=== PATIENT | female | born 1965 | race American Indian/Alaskan Native ===

== ENCOUNTER 2017-09-06 11:11 | Emergency (ER) | payer OTHER ==
--- NOTE | 2017-09-06 11:16 | EDM.PDOC ---
ED HPI GENERAL MEDICAL PROBLEM - General Chief Complaint: Head Injury Stated Complaint: FELL AND HIT HEAD LAST NIGHT/HEADACHE, [id number] Time Seen by Provider: 09/06/17 11:16 Source of Information: Reports: Patient, Old Records, RN, RN Notes Reviewed History Limitations: Reports: No Limitations - History of Present Illness INITIAL COMMENTS - FREE TEXT/NARRATIVE: Arrives from home by POV with c/o headache and pain with muscle spasms in the neck and low back. Pt states that she slipped on the ice yesterday and fell back hitting the back of her head and has pain in the neck and low back. Denies LOC, vomiting, leak of bloody or clear fluid from the ears or nose. Admits to nausea. She took a hydrocodone and flexeril but it didn't help the pain. 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: Reports: Other Medication(s) Head Pain Score (Numeric/FACES): 8 Neck Pain Score (Numeric/FACES): 8 Upper Back Pain Score (Numeric/FACES): 8 - Related Data Allergies Allergy/AdvReac Type Severity Reaction Status Date / Time morphine Allergy Hives Verified 09/06/17 11:19 tramadol Allergy Abdominal Verified 09/06/17 11:19 Pain acetaminophen AdvReac Stomach Verified 09/06/17 11:19 [From Tylenol-Codeine #3] Upset codeine phosphate AdvReac Stomach Verified 09/06/17 11:19 [From Tylenol-Codeine #3] Upset ketorolac [From Toradol] AdvReac Stomach Verified 09/06/17 11:19 Upset trazodone AdvReac Stomach Verified 09/06/17 11:19 Upset Home Meds: Home Meds Cyclobenzaprine [Flexeril] 10 mg PO TID PRN 12/13/13 [History] Ibuprofen 800 mg PO ASDIRECTED PRN 12/13/13 [History] Lisinopril [Zestril] 20 mg PO DAILY 12/13/13 [History] Hydrocodone/Acetaminophen [Hydrocodon-Acetaminophen 5-325] 1 each PO ASDIRECTED PRN 02/13/16 [History] atorvaSTATin [Lipitor] 40 mg PO BEDTIME 02/13/16 [History] Nitroglycerin [Nitrostat] 1 tab PO ASDIRECTED 02/23/16 [History] Aspirin [Ecotrin] 81 mg PO DAILY 03/08/16 [History] Cholecalciferol (Vitamin D3) [Vitamin D] 5,000 unit PO DAILY 09/06/17 [History] Diclofenac Sodium [Voltaren] 1 applic TOP ASDIRECTED 09/06/17 [History] Hydrochlorothiazide 12.5 mg PO DAILY 09/06/17 [History] Omeprazole 20 mg PO BID 09/06/17 [History] Ranitidine [Zantac] 150 mg PO DAILY 09/06/17 [History] Past Medical History HEENT History: Reports: None Cardiovascular History: Reports: High Cholesterol, Hypertension Respiratory History: Reports: None Gastrointestinal History: Reports: None Genitourinary History: Reports: None 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 Other Musculoskeletal History: hip pain Neurological History: Reports: None Psychiatric History: Reports: None Endocrine/Metabolic History: Reports: None Hematologic History: Reports: None Immunologic History: Reports: None Oncologic (Cancer) History: Reports: None - Past Surgical History Cardiovascular Surgical History: Reports: Other (See Below) Social & Family History - Family History Family Medical History: Noncontributory - Tobacco Use Smoking Status *Q: Current Every Day Smoker Years of Tobacco use: 2 Packs/Tins Daily: 0.1 Used Tobacco, but Quit: No Second Hand Smoke Exposure: Yes - Caffeine Use Caffeine Use: Reports: Coffee - Alcohol Use Days Per Week of Alcohol Use: 0 - Recreational Drug Use Recreational Drug Use: No - Living Situation & Occupation Living situation: Reports: with Family Occupation: Employed ED ROS GENERAL - Review of Systems Review Of Systems: ROS reveals no pertinent complaints other than HPI. ED EXAM, HEAD INJURY - Physical Exam Exam: See Below Exam Limited By: No Limitations General Appearance: Alert, WD/WN, No Apparent Distress Head: Atraumatic, Normocephalic Nexus Criteria: Posterior, Midline Cervical Tenderness Eyes: Bilateral Eye: EOMI, Normal Inspection, PERRL Ears: Normal External Exam, Normal Canal, Hearing Grossly Normal, Normal TMs. No: Canal Blood, Canal Discharge, TM Blood, TM Fluid Nose: Normal Inspection, Normal Mucousa, No Blood Throat/Mouth: Normal Inspection, Normal Lips, Normal Teeth, Normal Gums, Normal Oropharynx, Normal Voice, No Airway Compromise Neck: Normal Alignment, Limited Range of Motion, Muscle Spasm, Painful Range of Motion, Paraspinous Muscle Tender Respiratory: No Respiratory Distress, Lungs Clear, Normal Breath Sounds, No Accessory Muscle Use, Chest Non-Tender Cardiovascular: Normal Peripheral Pulses, Regular Rate, Rhythm, No Edema, No Gallop, No JVD, No Murmur, No Rub GI/Abdominal Exam: Normal Bowel Sounds, Soft, Non-Tender, No Distention, No Abnormal Bruit (Female) Exam: Deferred Rectal (Female) Exam: Deferred Back Exam: Decreased Range of Motion (lumbar region), Muscle Spasm, Paraspinal Tenderness (lumbar). 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 As Tested, No Motor/Sensory Deficits, Alert, Normal Mood/Affect, Oriented x 3 Skin: Normal Color, Warm/Dry - Gladys Coma Score Best Eye Response (Gladys): (4) Open Spontaneously Best Verbal Response ([place]): (5) Oriented Best Motor Response (Gladys): (6) Obeys Commands Gladys Total: 15 Course - Vital Signs Last Recorded V/S: Last Vital Signs Temp 36.6 C 09/06/17 11:21 Pulse 78 09/06/17 11:21 Resp 16 09/06/17 11:21 BP 149/72 H 09/06/17 11:21 Pulse Ox 100 09/06/17 11:21 - Orders/Labs/Meds Orders: Active Orders 24 hr Category Date Time Status Cervical Spine 2V or 3V [CR] Urgent Exams 09/06/17 11:41 Ordered Lumbar Spine 2 or 3V [CR] Urgent Exams 09/06/17 11:41 Ordered Acetaminophen/HYDROcodone [[place] 325-10 MG] Med 09/06/17 12:25 Once 1 tab PO ONETIME ONE Cyclobenzaprine [Flexeril] Med 09/06/17 12:25 Once 10 mg PO ONETIME ONE Ondansetron [Zofran ODT] Med 09/06/17 12:26 Once 4 mg PO ONETIME ONE - Re-Assessments/Exams Free Text/Narrative Re-Assessment/Exam: 09/06/17 12:26 Xray C-spine and L-spine: no acute fractures, see Rad. report. Departure - Departure Time of Disposition: 12:27 Disposition: Home, Self-Care 01 Condition: Fair Clinical Impression: Concussion with no loss of consciousness, Muscle spasms of neck, Muscle spasm of back Fall due to ice or snow Qualifiers: Encounter type: initial encounter Qualified Code(s): W00.9XXA - Unspecified fall due to ice and snow, initial encounter - Discharge Information Instructions: Concussion, Adult, [id number], Muscle Cramps and Spasms, Easy- to-Read Forms: ED Department Discharge Additional Instructions: Rx: Zofran 4mg for nausea. Take your Hydrocodone one tablet every 4 to 6 hours as needed. Take your Cyclobenzaprine 10mg one tablet three times a day. May use Ibuprofen (Motrin/Advil) 600mg every 6 hours as needed, or 800mg every 8 hours as needed (do not exceed 2400mg in 24 hours). Use heating pad or moist heat pack to areas of pain and muscle spasms. Follow up in clinic if needed. - My Orders Last 24 Hours: My Active Orders 09/06/17 11:41 Cervical Spine 2V or 3V [CR] Urgent Lumbar Spine 2 or 3V [CR] Urgent 09/06/17 12:25 Acetaminophen/HYDROcodone [[place] 325-10 MG] 1 tab PO ONETIME ONE Cyclobenzaprine [Flexeril] 10 mg PO ONETIME ONE 09/06/17 12:26 Ondansetron [Zofran ODT] 4 mg PO ONETIME ONE - Assessment/Plan Last 24 Hours: My Active Orders 09/06/17 11:41 Cervical Spine 2V or 3V [CR] Urgent Lumbar Spine 2 or 3V [CR] Urgent 09/06/17 12:25 Acetaminophen/HYDROcodone [[place] 325-10 MG] 1 tab PO ONETIME ONE Cyclobenzaprine [Flexeril] 10 mg PO ONETIME ONE 09/06/17 12:26 Ondansetron [Zofran ODT] 4 mg PO ONETIME ONE
[2017-09-06 11:22] VITALS: BP 149/72
[2017-09-06] MEDS ORDERED: Cyclobenzaprine 10 MG Tab PO ONE (12:25)
[2017-09-06] MEDS ORDERED: Acetaminophen/HYDROcodone 325-10 MG Tab PO ONE (12:25)
[2017-09-06] MEDS ORDERED: Ondansetron 4 MG Tab.DIS PO ONE (12:26)
== END 2017-09-06 12:38 | disposition home or self-care (01) ==
LOC: DL.ED 11:11
DX: S06.0X0A Concussion without loss of consciousness, initial encounter (principal); M62.830 Muscle spasm of back; E78.00 Pure hypercholesterolemia, unspecified; I10 Essential (primary) hypertension; F17.210 Nicotine dependence, cigarettes, uncomplicated; Z88.6 Allergy status to analgesic agent; Z88.5 Allergy status to narcotic agent; Z88.8 Allergy status to other drugs, medicaments and biological substances; Z79.899 Other long term (current) drug therapy; W00.9XXA Unspecified fall due to ice and snow, initial encounter
CPT/HCPCS: 72040; 72100; 99283; A9270

== ENCOUNTER 2020-11-26 14:13 | Emergency (ER) | payer MEDICAID, OTHER ==
--- NOTE | 2020-11-26 14:29 | EDM.PDOC ---
ED HPI GENERAL MEDICAL PROBLEM - General Stated Complaint: VOMITING, STOMACH AND CHEST PAINS Time Seen by Provider: 11/26/20 14:13 Source of Information: Reports: Patient History Limitations: Reports: No Limitations - History of Present Illness INITIAL COMMENTS - FREE TEXT/NARRATIVE: This 55 yo female patient reports to the ED with an acute onset of upper abdominal lower chest pain. The patient also reports she is nauseated and vomiting. The patient reports she has had previous abdominal complaints in the past, but could not remember what had happened. Onset: Today Duration: Constant Location: Reports: Chest, Abdomen Quality: Reports: Other Severity: Severe Improves with: Reports: None Worsens with: Reports: None Context: Reports: Other Associated Symptoms: Reports: No Other Symptoms Abdomen Pain Score (Numeric/FACES): 10 - Related Data Allergies Allergy/AdvReac Type Severity Reaction Status Date / Time morphine Allergy Hives Verified 11/26/20 14:34 tramadol Allergy Abdominal Verified 11/26/20 14:34 Pain acetaminophen AdvReac Stomach Verified 11/26/20 14:34 [From Tylenol-Codeine #3] Upset codeine phosphate AdvReac Stomach Verified 11/26/20 14:34 [From Tylenol-Codeine #3] Upset ketorolac [From Toradol] AdvReac Stomach Verified 11/26/20 14:34 Upset trazodone AdvReac Stomach Verified 11/26/20 14:34 Upset Home Meds: Home Meds Cyclobenzaprine [Flexeril] 10 mg PO TID PRN 12/13/13 [History] Ibuprofen 800 mg PO ASDIRECTED PRN 12/13/13 [History] Lisinopril [Zestril] 20 mg PO DAILY 12/13/13 [History] Hydrocodone/Acetaminophen [Hydrocodon-Acetaminophen 5-325] 1 each PO ASDIRECTED PRN 02/13/16 [History] atorvaSTATin [Lipitor] 40 mg PO BEDTIME 02/13/16 [History] Nitroglycerin [Nitrostat] 1 tab PO ASDIRECTED 02/23/16 [History] Aspirin [Ecotrin] 81 mg PO DAILY 03/08/16 [History] Cholecalciferol (Vitamin D3) [Vitamin D] 5,000 unit PO DAILY 09/06/17 [History] Diclofenac Sodium [Voltaren] 1 applic TOP ASDIRECTED 09/06/17 [History] Omeprazole 20 mg PO BID 09/06/17 [History] Ranitidine [Zantac] 150 mg PO DAILY 09/06/17 [History] hydroCHLOROthiazide [Hydrochlorothiazide] 12.5 mg PO DAILY 09/06/17 [History] Past Medical History HEENT History: Reports: None, Impaired Vision Cardiovascular History: Reports: High Cholesterol, Hypertension Respiratory History: Reports: None Gastrointestinal History: Reports: GERD Genitourinary History: Reports: 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: Musculoskeletal History: Reports: Other (See Below) Other Musculoskeletal History: hip pain Neurological History: Reports: None Psychiatric History: Reports: None Endocrine/Metabolic History: Reports: None Hematologic History: Reports: None Immunologic History: Reports: None Oncologic (Cancer) History: Reports: None - Past Surgical History HEENT Surgical History: Reports: Tonsillectomy Cardiovascular Surgical History: Reports: Other (See Below) GI Surgical History: Reports: Appendectomy Other Musculoskeletal Surgeries/Procedures:: pt reports 13 back surgeries Social & Family History - Family History Family Medical History: No Pertinent Family History - Caffeine Use Caffeine Use: Reports: Coffee - Living Situation & Occupation Living situation: Reports: with Family Occupation: Employed ED ROS GENERAL - Review of Systems Review Of Systems: Comprehensive ROS is negative, except as noted in HPI. ED EXAM, GENERAL - Physical Exam Exam: See Below Exam Limited By: No Limitations General Appearance: Alert, WD/WN, Anxious, Moderate Distress Eye Exam: Bilateral Eye: EOMI, Normal Inspection, PERRL Ears: Normal External Exam, Normal Canal, Hearing Grossly Normal, Normal TMs Nose: Normal Inspection, Normal Mucosa, No Blood Throat/Mouth: Normal Inspection, Normal Lips, Normal Teeth, Normal Gums, Normal Oropharynx, Normal Voice, No Airway Compromise Head: Atraumatic, Normocephalic Neck: Normal Inspection, Supple, Non-Tender, Full Range of Motion Cardiovascular: Normal Peripheral Pulses, Regular Rate, Rhythm, No Edema, No Gallop, No JVD, No Murmur, No Rub GI/Abdominal: Normal Bowel Sounds, Soft, Non-Tender, No Organomegaly, No Distention, No Abnormal Bruit, No Mass (Female) Exam: Deferred Rectal (Female) Exam: Deferred Back Exam: Normal Inspection, Full Range of Motion, NT Extremities: Normal Inspection, Normal Range of Motion, Non-Tender, Normal Capillary Refill, No Pedal Edema Neurological: Alert, Oriented, CN II-XII Intact, Normal Cognition, Normal Gait, Normal Reflexes, No Motor/Sensory Deficits Psychiatric: Normal Affect, Normal Mood Skin Exam: Warm, Dry, Intact, Normal Color, No Rash Lymphatic: No Adenopathy Course - Vital Signs Last Recorded V/S: Last Vital Signs Temp 36.4 C 11/26/20 14:29 Pulse 80 11/26/20 14:29 Resp 24 H 11/26/20 14:29 BP 135/87 11/26/20 14:29 Pulse Ox 100 11/26/20 14:29 - Orders/Labs/Meds Orders: Active Orders 24 hr Category Date Time Status EKG Documentation Completion [RC] STAT Care 11/26/20 14:14 Active COVID-19/FLU A+B [[facility]LEC] Urgent Lab 11/26/20 14:14 Ordered CULTURE BLOOD [BC] Stat Lab 11/26/20 14:35 Results CULTURE BLOOD [BC] Stat Lab 11/26/20 14:45 Received Labs: Laboratory Tests 11/26/20 11/26/20 11/26/20 Range/Units 14:45 14:45 15:06 WBC 10.7 H (5.0-10.0) 10^3/uL RBC 4.69 (4.2-5.4) 10^6/uL Hgb 15.3 (12.0-16.0) g/dL Hct 42.9 (37.0-47.0) % MCV 91.5 (80-100) fL MCH 32.6 (27.0-34.0) pg MCHC 35.7 H (33.0-35.0) g/dL Plt Count 310 (150-450) 10^3/uL Neut % (Auto) 68.1 (42.2-75.2) % Lymph % (Auto) 23.1 (20.5-50.1) % Eddy % (Auto) 7.5 (2-8) % Eos % (Auto) 0.5 L (1.0-3.0) % Baso % (Auto) 0.8 (0.0-1.0) % Sodium 135 L (136-145) mmol/L Potassium 3.7 (3.5-5.1) mmol/L Chloride 98 (98-107) mmol/L Carbon Dioxide 23 (21-32) mmol/L Anion Gap 17.7 H (7-13) mEq/L BUN 17 (7-18) mg/dL Creatinine 0.74 (0.55-1.02) mg/dL Est Cr Clr Drug Dosing 78.52 mL/min Estimated GFR (MDRD) > 60 BUN/Creatinine Ratio 23.0 (No establ ref range) Glucose 122 H (74-99) mg/dL Calcium 8.9 (8.5-10.1) mg/dL Total Bilirubin 0.5 (0.2-1.0) mg/dL AST 15 (15-37) U/L ALT 24 (14-59) U/L Alkaline Phosphatase 85 (46-116) U/L Troponin I < 0.017 (0.000-0.056) ng/mL Total Protein 8.0 (6.4-8.2) g/dL Albumin 4.3 (3.4-5.0) g/dL Globulin 3.7 Albumin/Globulin Ratio 1.2 Amylase 50 (25-115) U/L Lipase 65 L (73-393) U/L Urine Color Yellow (YELLOW) Urine Appearance Clear (CLEAR) Urine pH 5.5 (5.0-9.0) Ur Specific [place] 1.025 (1.005-1.030) Urine Protein Negative (NEGATIVE) Urine Glucose (UA) Negative (NEGATIVE) Urine Ketones Negative (NEGATIVE) Urine Occult Blood Trace-intact H (NEGATIVE) Urine Nitrite Negative (NEGATIVE) Urine Bilirubin Negative (NEGATIVE) Urine Urobilinogen 0.2 (0.2-1.0) mg/dL Ur Leukocyte Esterase Negative (NEGATIVE) U Hyaline Cast (Auto) Few Urine RBC 0-5 /HPF Urine WBC 0-5 (0-5/HPF) /HPF Ur Epithelial Cells Few (NOT SEEN) /HPF Urine Bacteria Moderate H (0-FEW/HPF) /HPF Urine Opiates Screen (NEGATIVE) Ur Oxycodone Screen (NEGATIVE) Urine Methadone Screen (NEGATIVE) Ur Barbiturates Screen (NEGATIVE) U Tricyclic Antidepress (NEGATIVE) Ur Phencyclidine Scrn (NEGATIVE) Ur Amphetamine Screen (NEGATIVE) U Methamphetamines Scrn (NEGATIVE) Urine MDMA Screen (NEGATIVE) U Benzodiazepines Scrn (NEGATIVE) Urine Cocaine Screen (NEGATIVE) U Marijuana (THC) Screen (NEGATIVE) 11/26/20 Range/Units 15:06 WBC (5.0-10.0) 10^3/uL RBC (4.2-5.4) 10^6/uL Hgb (12.0-16.0) g/dL Hct (37.0-47.0) % MCV (80-100) fL MCH (27.0-34.0) pg MCHC (33.0-35.0) g/dL Plt Count (150-450) 10^3/uL Neut % (Auto) (42.2-75.2) % Lymph % (Auto) (20.5-50.1) % Eddy % (Auto) (2-8) % Eos % (Auto) (1.0-3.0) % Baso % (Auto) (0.0-1.0) % Sodium (136-145) mmol/L Potassium (3.5-5.1) mmol/L Chloride (98-107) mmol/L Carbon Dioxide (21-32) mmol/L Anion Gap (7-13) mEq/L BUN (7-18) mg/dL Creatinine (0.55-1.02) mg/dL Est Cr Clr Drug Dosing mL/min Estimated GFR (MDRD) BUN/Creatinine Ratio (No establ ref range) Glucose (74-99) mg/dL Calcium (8.5-10.1) mg/dL Total Bilirubin (0.2-1.0) mg/dL AST (15-37) U/L ALT (14-59) U/L Alkaline Phosphatase (46-116) U/L Troponin I (0.000-0.056) ng/mL Total Protein (6.4-8.2) g/dL Albumin (3.4-5.0) g/dL Globulin Albumin/Globulin Ratio Amylase (25-115) U/L Lipase (73-393) U/L Urine Color (YELLOW) Urine Appearance (CLEAR) Urine pH (5.0-9.0) Ur Specific [place] (1.005-1.030) Urine Protein (NEGATIVE) Urine Glucose (UA) (NEGATIVE) Urine Ketones (NEGATIVE) Urine Occult Blood (NEGATIVE) Urine Nitrite (NEGATIVE) Urine Bilirubin (NEGATIVE) Urine Urobilinogen (0.2-1.0) mg/dL Ur Leukocyte Esterase (NEGATIVE) U Hyaline Cast (Auto) Urine RBC /HPF Urine WBC (0-5/HPF) /HPF Ur Epithelial Cells (NOT SEEN) /HPF Urine Bacteria (0-FEW/HPF) /HPF Urine Opiates Screen Positive H (NEGATIVE) Ur Oxycodone Screen Positive H (NEGATIVE) Urine Methadone Screen Negative (NEGATIVE) Ur Barbiturates Screen Negative (NEGATIVE) U Tricyclic Antidepress Positive H (NEGATIVE) Ur Phencyclidine Scrn Negative (NEGATIVE) Ur Amphetamine Screen Negative (NEGATIVE) U Methamphetamines Scrn Negative (NEGATIVE) Urine MDMA Screen Negative (NEGATIVE) U Benzodiazepines Scrn Negative (NEGATIVE) Urine Cocaine Screen Negative (NEGATIVE) U Marijuana (THC) Screen Positive H (NEGATIVE) Meds: Medications Discontinued Medications Generic Name Dose Route Start Last Admin Trade Name Freq PRN Reason Stop Dose Admin Hydromorphone HCl 0.5 mg 11/26/20 15:21 11/26/20 15:28 Dilaudid IVPUSH 11/26/20 15:22 0.5 mg ONETIME ONE Administration Hydromorphone HCl 0.5 mg 11/26/20 16:20 11/26/20 16:29 Dilaudid IVPUSH 11/26/20 16:21 0.5 mg ONETIME ONE Administration Ondansetron HCl 4 mg 11/26/20 15:20 11/26/20 15:27 Zofran IVPUSH 11/26/20 15:21 4 mg ONETIME ONE Administration Promethazine HCl 25 mg 11/26/20 18:21 Phenergan IM 11/26/20 18:22 ONETIME ONE - Re-Assessments/Exams Free Text/Narrative Re-Assessment/Exam: 11/26/20 16:20 The patient reports her nausea and pain have continued. The patient reports the initial pain medication has brought her pain down, but it is starting to go up again. The patient was advised of the lab results. Departure - Departure Time of Disposition: 18:24 Disposition: Home, Self-Care 01 Condition: Fair Clinical Impression: Disorder of gallbladder - Discharge Information *PRESCRIPTION DRUG MONITORING PROGRAM REVIEWED*: Not Applicable *COPY OF PRESCRIPTION DRUG MONITORING REPORT IN PATIENT TUNDE: Not Applicable Instructions: Gallbladder Eating Plan Forms: ED Department Discharge Care Plan Goals: The patient was advised of the examination, lab and CT results during the visit. The patient was given medications for nausea and pain during the visit. The patient was discharged with a script for Percocet (5/325) #6 to take 1 by mouth every 6 hours as needed for pain and Zofran (4 mg) #16 to take 1 by mouth every 4 hours for nausea. The patient was encouraged to follow-up with her primary care facility as soon as possible for further evaluation (Gallbladder ultrasound) and management. If the patient has any additional symptoms or concerns, the patient should either return to the emergency department or visit her primary care facility. Sepsis Event Note (ED) - Focused Exam Vital Signs: Vital Signs Temp Pulse Resp BP Pulse Ox 11/26/20 14:29 36.4 C 80 24 H 135/87 100 - My Orders Last 24 Hours: My Active Orders 11/26/20 14:14 EKG Documentation Completion [RC] STAT COVID-19/FLU A+B [MOLEC] Urgent 11/26/20 14:35 CULTURE BLOOD [BC] Stat 11/26/20 14:45 CULTURE BLOOD [BC] Stat - Assessment/Plan Last 24 Hours: My Active Orders 11/26/20 14:14 EKG Documentation Completion [RC] STAT COVID-19/FLU A+B [MOLEC] Urgent 11/26/20 14:35 CULTURE BLOOD [BC] Stat 11/26/20 14:45 CULTURE BLOOD [BC] Stat
[2020-11-26 14:33] VITALS: BP 135/87; PULSE 80
[2020-11-26 15:13] LABS: ANION GAP 17.7 mEq/L (7-13); CHLORIDE,CL 98 mmol/L (98-107); SODIUM,NA 135 mmol/L (136-145)
[2020-11-26] MEDS ORDERED: Ondansetron 4 MG/2 ML SDV IVPUSH ONE (15:20)
[2020-11-26] MEDS ORDERED: HYDROmorphone 0.5 MG/0.5 ML Syringe IVPUSH ONE ×2 (15:21→16:20)
--- NOTE | 2020-11-26 16:53 | CT ---
EXAMINATION: Abdomen Pelvis wo Cont SEX: Female AGE: 55 years CLINICAL HISTORY: 55-year-old hypertensive 157 pound diabetic female smoker complaining of upper abdominal pain. Patient reported May 2019 ultrasound to have "negative gallbladder, liver and pancreas". "Diverticulosis colon (hepatic flexure and sigmoid)" reported on [address] exam. Appendectomy. Hysterectomy. Scan technique: Volume acquisition of data unenhanced CT scan abdomen and pelvis obtained with patient lying supine on the Siemens multislice scanner [place], [place]. All data archived in the PACS system for storage, reformatting axial/sagittal/coronal planes and study. Interpretation: 1. No calcified gallstones. Gallbladder distended RUQ without abnormal bowel wall thickening or pericystic fluid. 2. Normal size anatomic configuration and homogeneous density of the unenhanced liver. No abnormal dilatation of intra or extrahepatic biliary ducts. Stomach, spleen, pancreas and adrenal glands unremarkable. 3. Normal reniform size, axis and configuration of the unenhanced kidneys. No cortical mass, perinephric inflammation, nephrolithiasis or signs of obstructive uropathy. Unenhanced urinary bladder unremarkable. 4. No pelvic or abdominal mass lesion, no mesenteric or retroperitoneal lymphadenopathy. No inflammatory "dirty" peritoneal fat, signs of mechanical bowel obstruction, ascites or free intraperitoneal air. 5. Linear calcifications normal caliber aortoiliac vessels. Osteopenia. Lumbar disc disease otherwise negative spine. 6. Lung bases clear. Normal cardiac silhouette. No pericardial or pleural effusions. CONCLUSION: No sign of intraperitoneal malignancy, mechanical bowel obstruction or acute peritonitis.
[2020-11-26] MEDS ORDERED: Promethazine 25 MG/ML SDV IM ONE (18:21)
== END 2020-11-26 18:51 | disposition home or self-care (01) ==
LOC: DL.ED 14:13
DX: K82.9 Disease of gallbladder, unspecified (principal); E78.00 Pure hypercholesterolemia, unspecified; I10 Essential (primary) hypertension; K21.9 Gastro-esophageal reflux disease without esophagitis; Z88.5 Allergy status to narcotic agent; Z88.6 Allergy status to analgesic agent; Z79.82 Long term (current) use of aspirin; Z79.899 Other long term (current) drug therapy
CPT/HCPCS: 36415; 74176; 80053; 80305; 81001; 82150; 83690; 84484; 85025; 87040; 93005; 96372; 96374; 96375; 96376; 99285; J1170; J2405; J2550; 99284

== ENCOUNTER 2024-12-12 11:14 | Emergency (ER) | payer MEDICARE, MEDICAID ==
[2024-12-12] MEDS ORDERED: Sodium Chloride 0.9% 10 ML Syringe FLUSH PRN (11:57)
[2024-12-12] MEDS: Ondansetron 4 MG/2 ML SDV IVPUSH ONE (12:17)
[2024-12-12] MEDS: fentaNYL 100 MCG/2 ML SDV IVPUSH ONE ×2 (12:17→12:43)
[2024-12-12 12:36] LABS: HEMATOCRIT 45.4 % (37.0-47.0); HEMOGLOBIN 15.7 g/dL (12.0-16.0); MEAN CORPUSCULAR HEMOGLOBIN 31.2 pg (27.0-34.0); MEAN CORPUSCULAR HGB CONC 34.6 g/dL (33.0-35.0); MEAN CORPUSCULAR VOLUME 90.3 fL (80-100); PLATELET COUNT,PLT 329 10^3/uL (150-450); RED BLOOD CELL COUNT 5.03 10^6/uL (4.2-5.4); WHITE BLOOD CELL COUNT,WBC 8.7 10^3/uL (5.0-10.0)
[2024-12-12 12:41] LABS: APPEARANCE,URINE CLEAR (CLEAR); BILIRUBIN,URINE NEGATIVE (NEGATIVE); COLOR,URINE YELLOW (YELLOW); GLUCOSE,URINE NEGATIVE (NEGATIVE); KETONES,URINE NEGATIVE (NEGATIVE); LEUKOCYTE ESTERASE,URINE NEGATIVE (NEGATIVE); NITRITE,URINE NEGATIVE (NEGATIVE); OCCULT BLOOD,URINE TRACE-INTACT (NEGATIVE); PROTEIN,URINE NEGATIVE (NEGATIVE); UROBILINOGEN,URINE 0.2 mg/dL (0.2-1.0)
[2024-12-12 12:52] LABS: BACTERIA,URINE FEW /HPF (0-FEW/HPF); EPITHELIAL CELLS,URINE FEW /HPF (NOT SEEN); MUCUS,URINE RARE /LPF (NOT SEEN); RBC,URINE 0-5 /HPF (0-5); WBC,URINE NOT SEEN /HPF (0-5/HPF)
[2024-12-12] MEDS ORDERED: Piperacillin/Tazobactam 3.375 GM in Sodium Chloride 0.9% 100 ML IV ONE (12:53)
[2024-12-12 12:54] LABS: BASOPHILS PERCENT AUTO 1.5 % (0.0-1.0); EOSINOPHILS PERCENT AUTO 0.9 % (1.0-3.0); LYMPHOCYTES PERCENT AUTO 23.9 % (20.5-50.1); MONOCYTES PERCENT AUTO 7.5 % (2-8); NEUTROPHILS PERCENT AUTO 66.2 % (42.2-75.2)
[2024-12-12 12:58] LABS: INR 0.9 (0.9-1.2); PROTHROMBIN TIME 9.7 SEC (9.0-12.0); PTT,PARTIAL THROMBOPLSTIN TIME 28.1 SEC (22.0-34.0)
[2024-12-12 13:06] LABS: A/G RATIO 1.2; ALANINE AMINOTRANSFERASE,ALT 19 U/L (14-59); ALBUMIN 4.6 g/dL (3.4-5.0); ALKALINE PHOSPHATASE 116 U/L (46-116); ASPARTATE AMNIOTRANSFERASE,AST 16 U/L (15-37); BILIRUBIN TOTAL 0.6 mg/dL (0.2-1.0); BLOOD UREA NITROGEN,BUN 13 mg/dL (7-18); BUN/CREATININE RATIO 16.7 (No establ ref range); C-REACTIVE PROTEIN < 0.50 ng/dL (<=0.50); CALCIUM 9.5 mg/dL (8.5-10.1); CARBON DIOXIDE,CO2 27 mmol/L (21-32); CHLORIDE,CL 104 mmol/L (98-107); CREATININE 0.78 mg/dL (0.55-1.02); ESTIMATED GFR 86 mL/min (>=60); GLUCOSE RANDOM 105 mg/dL (70-99); LIPASE 68 U/L (16-77); MAGNESIUM 2.1 mg/dL (1.8-2.4); PROTEIN TOTAL,TP 8.4 g/dL (6.4-8.2); SODIUM,NA 141 mmol/L (136-145)
[2024-12-12] MEDS: HYDROmorphone 1 MG/ML Syringe IVPUSH ONE (13:07)
[2024-12-12 13:09] LABS: BASOPHILS PERCENT MAN 1; EOSINOPHILS PERCENT MAN 1 % (1-3); LYMPHOCYTES PERCENT MAN 27 % (20-50); MONOCYTES PERCENT MAN 6 % (2-8); SEG NEUTROPHILS PERCENT MAN 65 % (42-75)
[2024-12-12] MEDS: Iopamidol 612 MG/ML 100 ML Bottle IVPUSH ONE (13:10)
[2024-12-12 13:11] LABS: LACTIC ACID 0.8 mmol/L (0.4-2.0)
[2024-12-12] MEDS: GI Cocktail Oral Solution 30 ML PO ONE (13:49)
[2024-12-12] MEDS: Haloperidol Lactate 5 MG/ML SDV IM ONE (14:17)
[2024-12-12 14:24] LABS: METHAMPHETAMINES,URINE NEGATIVE (NEGATIVE)
[2024-12-12 14:25] LABS: AMPHETAMINES,URINE NEGATIVE (NEGATIVE); BARBITURATES,URINE NEGATIVE (NEGATIVE); BENZODIAZEPINE,URINE NEGATIVE (NEGATIVE); MDMA (ECSTASY), URINE NEGATIVE (NEGATIVE); METHADONE,URINE NEGATIVE (NEGATIVE); OPIATES,URINE NEGATIVE (NEGATIVE); OXYCODONE,URINE NEGATIVE (NEGATIVE); PHENCYCLIDINE,URINE NEGATIVE (NEGATIVE); TCA,URINE NEGATIVE (NEGATIVE)
[2024-12-12] MEDS: Simethicone 80 MG Tab.Chew PO ONE (14:26)
[2024-12-12 14:28] VITALS: BP 182/91; PULSE 82
[2024-12-12] MEDS: Sucralfate Suspension 1 GM/10 ML Cup PO ONE (14:56)
== END 2024-12-12 15:23 | disposition home or self-care (01) ==
LOC: DL.ED 11:14
DX: K29.70 Gastritis, unspecified, without bleeding (principal); R10.13 Epigastric pain; I10 Essential (primary) hypertension; K21.9 Gastro-esophageal reflux disease without esophagitis; E78.00 Pure hypercholesterolemia, unspecified; Z88.5 Allergy status to narcotic agent; Z88.6 Allergy status to analgesic agent; Z88.8 Allergy status to other drugs, medicaments and biological substances; Z79.82 Long term (current) use of aspirin; Z79.899 Other long term (current) drug therapy; Z90.49 Acquired absence of other specified parts of digestive tract
CPT/HCPCS: 36415; 74177; 80053; 80305; 81001; 82272; 83605; 83690; 83735; 84484; 85025; 85610; 85730; 86140; 87040; 93005; 93010; 96372; 96374; 96375; 96376; 99284; A9270; J1171; J1630; J2405; J3010; Q9967